=== PATIENT | female | born 1995 | race Caucasian/White ===

== ENCOUNTER 2016-12-14 07:34 | Emergency (ER) | payer BC ==
[~2016-12-14] VITALS: Ht 160 cm; Wt 75.0 kg
[2016-12-14 07:37] VITALS: BP 118/73; PULSE 86; TEMP 98
[2016-12-14] MEDS ORDERED: BIRTH CONTROL (07:39)
[2016-12-14] MEDS ORDERED: NORCO 325 MG-51 TAB PO (08:45)
== END 2016-12-14 09:10 | disposition home or self-care (01) ==
LOC: COL.ER 07:34
DX: S82.832A Other fracture of upper and lower end of left fibula, initial encounter for closed fracture (principal); S90.811A Abrasion, right foot, initial encounter; S93.491A Sprain of other ligament of right ankle, initial encounter; W10.8XXA Fall (on) (from) other stairs and steps, initial encounter; Y92.008 Other place in unspecified non-institutional (private) residence as the place of occurrence of the external cause

== ENCOUNTER 2018-06-08 18:17 | Outpatient (CLI) | payer BC ==
[~2018-06-08] VITALS: Wt 104.1 kg
[~2018-06-08 18:17] MED LIST: BIRTH CONTROL; NORCO 325 MG-51 TAB PO
[2018-06-08 18:35] VITALS: BP 130/71; PULSE 85; TEMP 97.7
[2018-06-08] MEDS ORDERED: PRENATAL MVI PO (18:38)
== END 2018-06-08 19:15 | disposition home or self-care (01) ==
LOC: LDRO 18:17
DX: O36.8130 Decreased fetal movements, third trimester, not applicable or unspecified (principal); Z3A.37 37 weeks gestation of pregnancy

== ENCOUNTER 2018-07-03 06:34 | Inpatient (IN) | payer BC, MEDICAID ==
[2018-07-03] VITALS (10 sets, daily range): BP systolic 119–134; BP diastolic 68–81; PULSE 79–113; TEMP 97.7–98
[~2018-07-03] VITALS: Ht 160.1 cm; Wt 106.4 kg
[~2018-07-03 06:34] MED LIST changes: +PRENATAL MVI PO
[2018-07-03 19:59] LABS: BASO % 0.2 % (0.0-2.0); EOS # 0.1 (0.0-0.7); EOS % 0.9 % (0-4.0); GRAN # 10.6 (1.4-6.5); GRAN % 76.5 % (42.2-75.2); HEMATOCRIT 33.7 % (37.0-47.0); HEMOGLOBIN 11.5 g/dl (12.5-16.0); LYMPH # 1.8 (1.2-3.4); LYMPH % 12.8 % (20.0-51.0); MEAN CELL VOLUME 86 fl (80.0-100.0); MEAN CORPUSCULAR HEMOGLOBIN 29 pg (27.0-31.0); MEAN CORPUSCULAR HGB CONC 34 g/dl (33.0-37.0); MEAN PLATELET VOLUME 11.3 fl (7.4-10.4); MONO # 1.2 (0.1-0.6); MONO % 8.4 % (1.7-9.3); PLATELET COUNT 304 K/mm3 (130-400); RED BLOOD COUNT 3.91 M/mm3 (4.10-5.30)
[2018-07-03 20:08] LABS: TRICYCLIC ANTIDEPRESS URINE NEGATIVE
[2018-07-04] VITALS (47 sets, daily range): BP systolic 100–149; BP diastolic 57–89; PULSE 65–111; TEMP 97.3–99
[2018-07-05 04:00] VITALS: BP 142/76; PULSE 112; TEMP 98.9
[2018-07-05 10:26] VITALS: BP 141/88; PULSE 100
[2018-07-05 17:23] VITALS: BP 124/71; PULSE 90
[2018-07-05 22:05] VITALS: BP 128/70; PULSE 104; TEMP 97.8
[2018-07-06 07:30] VITALS: BP 133/73; PULSE 85
[2018-07-06] MEDS ORDERED: MOTRIN 800800 MG/TAB PO (08:57)
[2018-07-06] MEDS ORDERED: PERCOCET 325 MG1 TA2 PO (08:57)
== END 2018-07-06 09:45 | disposition home or self-care (01) | DRG 788 ==
LOC: LDR 06:34 → OB 18:49 → LDR 18:49 → OB 07-04 16:30
PROVIDERS: Obstetrics & Gynecology
PROC: 10907ZC Drainage of Amniotic Fluid, Therapeutic from Products of Conception, Via Natural or Artificial Opening (ICD-10-PCS; 2018-07-03)
PROC: 3E033VJ Introduction of Other Hormone into Peripheral Vein, Percutaneous Approach (ICD-10-PCS; 2018-07-03)
PROC: 10D00Z1 Extraction of Products of Conception, Low, Open Approach (ICD-10-PCS; principal; 2018-07-04)
DX: O48.0 Post-term pregnancy (principal); O76 Abnormality in fetal heart rate and rhythm complicating labor and delivery; Z3A.41 41 weeks gestation of pregnancy; Z37.0 Single live birth; O69.81X0 Labor and delivery complicated by cord around neck, without compression, not applicable or unspecified; O99.344 Other mental disorders complicating childbirth; F41.9 Anxiety disorder, unspecified
CPT/HCPCS: J0690; J1885; J2175; J2270; J2370; J2405; J2590; J2795; J7120

== ENCOUNTER 2018-09-15 20:52 | Emergency (ER) | payer BC, MEDICAID ==
[~2018-09-15] VITALS: Ht 160 cm; Wt 89.5 kg
[~2018-09-15 20:52] MED LIST changes: +MOTRIN 800800 MG/TAB PO; +PERCOCET 325 MG1 TA2 PO
[2018-09-15 20:55] VITALS: BP 124/64; PULSE 102; TEMP 97.3
[2018-09-15 21:05] LABS: COLLECTION METHOD CLEAN CATCH
[2018-09-15 21:11] LABS: MUCOUS Present /lpf; PH 6 (5-8); URINE APPEARANCE Clear; URINE BACTERIA Rare /hpf; URINE BILIRUBIN Negative (NEGATIVE); URINE BLOOD Negative (NEGATIVE); URINE COLOR Straw; URINE GLUCOSE Negative (NEGATIVE); URINE KETONE Negative (NEGATIVE); URINE LEUKOCYTE ESTERASE Negative (NEGATIVE); URINE NITRATE Negative (NEGATIVE); URINE PROTEIN(semi-quant) Negative (NEGATIVE); URINE RBC 0-2 /hpf; URINE UROBILINOGEN Negative (NEGATIVE)
[2018-09-15 21:30] LABS: BASO % 0.3 % (0.0-2.0); EOS # 0.2 (0.0-0.7); EOS % 1.7 % (0-4.0); GRAN % 57.1 % (42.2-75.2); HEMATOCRIT 37.5 % (37.0-47.0); HEMOGLOBIN 12.2 g/dl (12.5-16.0); LYMPH # 2.8 (1.2-3.4); LYMPH % 32.1 % (20.0-51.0); MEAN CELL VOLUME 83 fl (80.0-100.0); MEAN CORPUSCULAR HEMOGLOBIN 27 pg (27.0-31.0); MEAN CORPUSCULAR HGB CONC 33 g/dl (33.0-37.0); MEAN PLATELET VOLUME 10.4 fl (7.4-10.4); MONO # 0.8 (0.1-0.6); MONO % 8.5 % (1.7-9.3); PLATELET COUNT 352 K/mm3 (130-400); RED BLOOD COUNT 4.51 M/mm3 (4.10-5.30); REDCELL DISTRIBUTION WIDTH-CV 13.4 % (11.5-14.5)
[2018-09-15 21:41] LABS: ALBUMIN 4.3 gm/dL (3.5-5.0); BILIRUBIN,TOTAL 0.4 mg/dL (0.0-1.0); C-REACTIVE PROTEIN 1.8 mg/dL (0.0-0.9); CALCIUM 9.6 mg/dL (8.4-10.2); CREATININE, serum 0.67 mg/dL (0.52-1.25); POTASSIUM 3.8 mmol/L (3.4-5.0); TOTAL PROTEIN 7.4 gm/dL (6.4-8.2)
== END 2018-09-15 23:34 | disposition home or self-care (01) ==
LOC: COL.ER 20:52
PROVIDERS: Physician Assistant
DX: R10.31 Right lower quadrant pain (principal); Z98.890 Other specified postprocedural states
CPT/HCPCS: J1170; J2405; J7030; Q9967

== ENCOUNTER 2024-05-01 13:07 | Outpatient (CLI) | payer BC, MEDICAID ==
[~2024-05-01] VITALS: Ht 160 cm; Wt 99.5 kg
--- NOTE | 2024-05-01 13:15 | NUR ---
PT AMBULATORY TO UNIT, ORIENTATED TO ROOM AND PLAN OF CARE. PT REPORTS FALLING 04/30/24 AROUND 1600. PT REPORTS FEELING BABY MOVE BUT "NOT MUCH" AND HAS NOT FELT MOVEMENT FOR 1 HOUR. PT DENIES PAIN, DENIES LOF, REPORTS FEELING IRREGULAR UNTRACEABLE CONTRACTIONS, AND DECREASED MOVEMENT. TOCO AND EFM BEGUN TRACING PER THIS RN. EFM CAT 1, NO VAGINAL BLEEDING, NO LOF, NO CONTRACTIONS ON MONITOR AND NONE PALPATED PER THIS RN. PT DENIES FEELING CONTRACTIONS. PT EXPRESSES SHE IS ABLE TO FEEL BABY MOVE AFTER THIS RN PLACES MONITOR. NOTIFIED AND LABOR CHECK PROTOCOL ORDERED
[2024-05-01 13:30] VITALS: BP 139/80; PULSE 85; TEMP 98.2
[2024-05-01 14:00] VITALS: BP 124/70; PULSE 87
[2024-05-01 14:30] VITALS: BP 124/66; PULSE 68
[2024-05-01] MEDS ORDERED: LR 1,000 ML IV PRN (14:30)
== END 2024-05-01 14:30 | disposition home or self-care (01) ==
LOC: LDRO 13:07 → LDR 14:24 → LDRO 14:30 → LDR 14:30
DX: O36.8190 Decreased fetal movements, unspecified trimester, not applicable or unspecified (principal); Z3A.00 Weeks of gestation of pregnancy not specified
CPT/HCPCS: OP

== ENCOUNTER 2024-06-25 05:25 | Inpatient (IN) | payer MEDICAID ==
[2024-06-25] VITALS (19 sets, daily range): BP systolic 94–141; BP diastolic 49–88; PULSE 57–80; TEMP 97.8–98
[~2024-06-25] VITALS: Ht 160.1 cm; Wt 106.8 kg
--- NOTE | 2024-06-25 05:30 | NUR ---
PATIENT AMBULATORY TO UNIT WITH SIGNIFICANT OTHER. PATIENT CHANGED INTO [facility]. DENIES LEAKING OF FLUID, VAGINAL BLEEDING OR CONTRACTIONS. EFMX2.
[2024-06-25] MEDS ORDERED: droPERidol 2.5 MG/ML 2 ML VIAL IV PRN (06:30)
[2024-06-25] MEDS ORDERED: LR 1,000 ML IV SCH ×2 (06:30)
[2024-06-25] MEDS ORDERED: Ondansetron 4 MG/2 ML VIAL IV PRN ×2 (06:30→09:00)
[2024-06-25] MEDS ORDERED: Meperidine 50 MG/ML 1 ML VIAL IV PRN (06:30)
[2024-06-25] MEDS ORDERED: diphenhydrAMINE 50 MG/ML 1 ML VIAL IV PRN (06:30)
[2024-06-25] MEDS ORDERED: PRENATAL TABLET PO (06:33)
[2024-06-25 06:38] LABS: BASO # 0.1 K/mm3 (0.0-0.2); BASO % 0.4 % (0.0-2.0); EOS # 0.2 K/mm3 (0.0-0.7); EOS % 1.8 % (0.0-4.0); GRAN # 8.1 K/mm3 (1.4-6.5); GRAN % 70.3 % (42.2-75.2); HEMOGLOBIN 11.8 g/dl (12.5-16.0); LYMPH # 2.2 K/mm3 (1.2-3.4); LYMPH % 18.9 % (20.0-51.0); MEAN CELL VOLUME 90 fl (80.0-100.0); MEAN CORPUSCULAR HEMOGLOBIN 31 pg (27-31); MEAN CORPUSCULAR HGB CONC 35 g/dl (33.0-37.0); MEAN PLATELET VOLUME 11.3 fl (7.4-10.4); MONO # 0.9 K/mm3 (0.1-0.6); MONO % 7.6 % (1.7-9.3); PLATELET COUNT 297 K/mm3 (130-400); RED BLOOD COUNT 3.76 M/mm3 (4.10-5.30)
[2024-06-25 06:42] LABS: HEMATOCRIT 33.9 % (37.0-47.0)
[2024-06-25] MEDS ORDERED: Ondansetron 4 MG/2 ML VIAL ONE (07:08)
[2024-06-25] MEDS ORDERED: Ketorolac 30 MG/ML VIAL ONE (07:08)
[2024-06-25] MEDS ORDERED: Oxytocin 10 UNITS/ML VIAL ONE (07:08)
[2024-06-25] MEDS ORDERED: NS 30 ML IV ONE (07:08)
[2024-06-25] MEDS ORDERED: dexAMETHasone 10 MG/ML VIAL ONE (07:08)
[2024-06-25] MEDS ORDERED: Phenylephrine 10 MG/ML VIAL ONE (07:09)
[2024-06-25] MEDS ORDERED: EPINEPHrine 1 MG/1 ML Ampule ONE (08:05)
[2024-06-25] MEDS ORDERED: Loratadine 10 MG TAB PO PRN (08:30)
[2024-06-25] MEDS ORDERED: Magnes Hydrox (MOM) 80 MG/ML 30 ML CUP PO PRN (08:30)
[2024-06-25] MEDS ORDERED: oxyCODONE/Acetaminophen 5-325 MG TAB PO PRN (09:00)
[2024-06-25] MEDS ORDERED: Tdap Vaccine 0.5 ML SYRINGE IM SCH (09:00)
[2024-06-25] MEDS ORDERED: LR 1,000 ML IV PRN (09:00)
[2024-06-25] MEDS ORDERED: Naloxone 0.4 MG/ML VIAL IV PRN (09:00)
[2024-06-25] MEDS ORDERED: Morphine 4 MG/ML VIAL IV PRN (09:00)
[2024-06-25] MEDS ORDERED: Measles/Mumps/Rubella Virus Vaccine Live w Diluent 0.5 ML VIAL SQ SCH (09:00)
--- NOTE | 2024-06-25 11:07 | NUR ---
Initial visit; Patient, Dad, Grandma and Grandpa thanked [facility] for offering congratulations and God's blessings for the of their baby girl. [facility] thanked family for choosing [facility].
[2024-06-25] MEDS ORDERED: Ibuprofen 800 MG TAB PO SCH (14:30)
[2024-06-25] MEDS ORDERED: Sennosides/Docusate 8.6-50 MG TAB PO SCH (17:00)
[2024-06-25] MEDS ORDERED: traZODone 50 MG TAB PO PRN (21:00)
[2024-06-26 01:59] VITALS: BP 113/65; PULSE 79; TEMP 98
[2024-06-26 07:10] VITALS: BP 115/69; PULSE 64; TEMP 97.7
[2024-06-26 16:22] VITALS: BP 123/77; PULSE 74; TEMP 97.8
[2024-06-26 19:05] VITALS: BP 130/81; PULSE 77; TEMP 97.9
[2024-06-27 07:09] VITALS: BP 131/87; PULSE 82; TEMP 97.8
--- NOTE | 2024-06-27 10:12 | NUR ---
DISCHARGE INSTRUCTIONS REVIEWED WITH PT WITH EMPHASIS ON PAIN MANAGEMENT, HOME CARE, AND REASONS TO SEE/CALL PHYSICIAN. QUESTIONS INVITED AND ANSWERED. PT VERBALIZES UNDERSTANDING.
== END 2024-06-27 10:25 | disposition home or self-care (01) | DRG 788 ==
LOC: OB 05:25
PROVIDERS: ADMIT Obstetrics & Gynecology
PROC: 10D00Z1 Extraction of Products of Conception, Low, Open Approach (ICD-10-PCS; principal; 2020-06-25)
DX: O34.211 Maternal care for low transverse scar from previous cesarean delivery (principal); Z3A.39 39 weeks gestation of pregnancy; Z37.0 Single live birth; Z23 Encounter for immunization; O99.344 Other mental disorders complicating childbirth; F32.9 Major depressive disorder, single episode, unspecified
CPT/HCPCS: A9284; J0171; J0665; J0690; J1100; J1885; J2371; J2405; J2590; J7120